=== PATIENT | male | born 1980 | race Caucasian/White ===

== ENCOUNTER 2018-04-10 08:29 | Outpatient (CLI) | payer BC ==
--- NOTE | 2018-04-10 08:46 | RAD ---
TWO VIEWS CHEST: Comparison: None. History: Rheumatoid arthritis. FINDINGS: Two views of the chest show normal sized cardiomediastinal silhouette. There is no evidence of consol idation, mass, or pleural effusion. The bones are unremarkable. IMPRESSION: No evidence of acute cardiopulmonary disease. POS: [facility]
== END 2018-04-10 08:30 | disposition home or self-care (01) ==
LOC: BICRAD 08:29
PROVIDERS: ATTEND Internal Medicine Rheumatology
DX: M06.09 Rheumatoid arthritis without rheumatoid factor, multiple sites (principal)
CPT/HCPCS: 71046